=== PATIENT | female | born 1945 | race Caucasian/White ===

== ENCOUNTER → 2016-09-26 | Outpatient (CLI) | payer OTHER ==
--- NOTE | 2016-09-26 17:59 | DI ---
VENOUS DOPPLER ULTRASOUND OF THE RIGHT LOWER EXTREMITY, 09/26/2016 4:19 PM: Clinical History: Right leg pain Previous Exam: None. Technique: 2D real-time imaging is supplemented with color Doppler ultrasound. Compression and augmen tation maneuvers were performed. The long saphenous vein is normal. Reading: No evidence of deep venous thrombosis.
== END ==
LOC: MOB RAD 16:09
DX: M79.661 Pain in right lower leg (principal); R60.0 Localized edema; I83.91 Asymptomatic varicose veins of right lower extremity
CPT/HCPCS: 93971

== ENCOUNTER → 2016-10-06 | Outpatient (CLI) | payer OTHER | LOC: MMPC 11:11 | PROVIDERS: ATTEND Internal Medicine | DX: E66.9 Obesity, unspecified (principal); I10 Essential (primary) hypertension; I08.0 Rheumatic disorders of both mitral and aortic valves; K21.9 Gastro-esophageal reflux disease without esophagitis; J45.909 Unspecified asthma, uncomplicated; Z86.79 Personal history of other diseases of the circulatory system; N39.41 Urge incontinence; R07.89 Other chest pain; D12.6 Benign neoplasm of colon, unspecified; K44.9 Diaphragmatic hernia without obstruction or gangrene; Z78.0 Asymptomatic menopausal state; Z12.31 Encounter for screening mammogram for malignant neoplasm of breast | CPT/HCPCS: 99214 ==

== ENCOUNTER → 2016-10-15 | Outpatient (CLI) | payer OTHER ==
[2016-10-15 08:39] LABS: BASOPHILS # (AUTO) 0.06 10*3/UL; BASOPHILS % (AUTO) 0.8 % (0-1); EOSINOPHILS # (AUTO) 0.31 10*3/UL; HEMATOCRIT 43.4 % (37.0-47.0); HEMOGLOBIN 13.9 g/dL (12.0-16.0); LYMPHOCYTES # (AUTO) 1.67 10*3/uL; MEAN CORPUSCULAR HEMOGLOBIN 28.4 PG (27-31); MEAN CORPUSCULAR VOLUME 88.6 FL (81-99); MEAN PLATELET VOLUME 10.9 FL (7.4-12.2); MONOCYTES # (AUTO) 0.69 10*3/UL (0.3-0.8); NEUTROPHILS # (AUTO) 4.88 10*3/UL; NEUTROPHILS % (AUTO) 63.3 % (50-80)
[2016-10-15 08:44] LABS: PLATELET MORPHOLOGY COMMENT NORMAL MORPHOLOGY (NORM); RBC MORPHOLOGY COMMENT NORMAL MORPHOLOGY (NORM); WBC MORPHOLOGY COMMENT NORMAL MORPHOLOGY (NORM)
[2016-10-15 08:51] LABS: BLOOD UREA NITROGEN 23 mg/dL (7-22); BUN/CREATININE RATIO 28.75 (6-20); CALCIUM 9.4 mg/dL (8.7-10.7); EST GLOMERULAR FILTRATION > 60 (>60 ml/min/1.73m(2)); SERUM ALBUMIN 3.9 g/dL (3.5-4.8)
--- NOTE | 2016-10-15 09:00 | EKG ---
[address] [address] Measurements Intervals [place] Rate: 61 P: 73 MT: 149 QRS: 24 QRSD: 98 T: 30 QT: 421 QTc: 424 Interpretive Statements SINUS RHYTHM INTERPRETATION BASED ON A DEFAULT AGE OF 40 YEARS No previous ECG available for comparison Electronically Signed On 10-20-16 09:32:37 MDT by Adonay Parisi MD [email or web address]
[2016-10-15 09:04] LABS: CHOL/HDL RATIO 4.39 RATIO (0-4.0); LDL CHOLESTEROL,CALCULATED 34.4 mg/dL
[2016-10-15 09:58] LABS: FREE T4 (FREE THYROXINE) 0.81 ng/dL (0.93-1.71)
[2016-10-15 10:11] LABS: CLARITY,URINE CLEAR (CLEAR); COLOR,URINE YELLOW; PH,URINE 5.5 (5.0-8.5); PROTEIN,URINE NEGATIVE (NEG); URINE SAMPLE TYPE CLEAN CATCH URINE
[2016-10-15 10:12] LABS: BACTERIA,URINE RARE; BILIRUBIN,URINE NEGATIVE (NEG); GLUCOSE, URINE (UA) NEGATIVE (NEG); NITRATE,URINE NEGATIVE (NEG); OCCULT BLOOD,URINE SMALL (NEG); SQUAMOUS EPITHELIAL CELL,UR FEW; UROBILINOGEN,URINE 0.2 mg/dL (0.2)
== END ==
LOC: LAB 08:18
PROVIDERS: ATTEND Internal Medicine
DX: I10 Essential (primary) hypertension (principal); R07.89 Other chest pain; E66.9 Obesity, unspecified; J45.909 Unspecified asthma, uncomplicated; Z86.79 Personal history of other diseases of the circulatory system
CPT/HCPCS: 36415; 80053; 80061; 81001; 84439; 84443; 85025; 93005; 93010

== ENCOUNTER → 2016-12-02 | Outpatient (CLI) | payer OTHER ==
[2016-12-02 12:57] LABS: FREE T4 (FREE THYROXINE) 0.75 ng/dL (0.93-1.71)
== END ==
LOC: MOB LAB 10:25
PROVIDERS: ATTEND Internal Medicine
DX: E03.9 Hypothyroidism, unspecified (principal); I10 Essential (primary) hypertension; K21.9 Gastro-esophageal reflux disease without esophagitis; E66.9 Obesity, unspecified; J45.909 Unspecified asthma, uncomplicated
CPT/HCPCS: 36415; 84439; 84443; 84481; 99213; G0463